=== PATIENT | male | born 1985 | race Caucasian/White ===

== ENCOUNTER 2018-11-17 09:39 | Emergency (ER) | payer MEDICAID, OTHER ==
[~2018-11-17] VITALS: Ht 165.1 cm; Wt 70.0 kg
[2018-11-17 09:56] VITALS: Ht 165.1 cm; Wt 70.0 kg
[2018-11-17] MEDS ORDERED: LORAZEPAM 2 MG INJ IM ONE (10:00)
--- NOTE | 2018-11-17 11:13 | ERD ---
ER Documentation Chief Complaint Chief Complaint bib lapd and ra from liquor store, feels stressed out wants to hang himself HPI This is a 33-year-old man with a history of schizophrenia recently noncompliant with his medications brought in by EMS and [employer] officers for agitation and bizarre behavior while at a grocery store. Patient stated he wanted to kill himself and wanted to hang himself today and states 2 days ago he was co ntemplating jumping off of a bridge to end his life. Patient had no trauma, no recent fevers or chills, no complaints of headache or blurry vision. Patient was transported here by EMS crying and agitated ROS All systems reviewed and are negative except as per history of present illness. Allergies Allergies: Coded Allergies: No Known Allergy (Unverified , 11/17/18) PMhx/Soc History of Surgery: No Anesthesia Reaction: No Hx Neurological Disorder: No Hx Respiratory Disorders: No Hx Cardiac Disorders: No Hx Psychiatric Problems: Yes (SCHIZOPHRENIA ) Hx Miscellaneous Medical Probl: No Hx Alcohol Use: Yes Hx Substance Use: No Hx Tobacco Use: Yes Smoking Status: Current every day smoker FmHx Family History: No diabetes Physical Exam Vitals Vital Signs Date Temp Pulse Resp B/P (MAP) Pulse Ox O2 O2 Flow FiO2 Time Delivery Rate 11/17/18 98.2 82 18 148/102 100 09:56 (117) Physical Exam GENERAL: Well-developed, well-nourished, agitated combative HEENT: Moist mucous membranes, pink conjunctiva, no cervical spine tenderness or step-off deformities, no goiter, no jaundice or icterus, extraocular movements intact without pain. No submandibular induration, and no pharyngeal erythema NEURO: Alert and oriented 3, cranial nerves II through XII intact bilaterally, pupils equal round reactive to light, no focal deficits or facial asymmetry CARDIAC: Regular rate and rhythm, no murmurs rubs or gallops LUNGS: Clear bilaterally no wheezing crackles or stridor ABDOMEN: Soft nontender, no guarding, no rigidity, no rebound, no psoas sign no obturator sign. Normoactive bowel sounds SKIN: Warm and dry to touch, no abrasions, contusions, or hematomas, no lacerations, no ecchymosis, no target lesions, and without ulcers EXTREMITIES: No clubbing cyanosis or edema, calves are bilaterally symmetrical, no Homans sign, no popliteal cord sign. Distal pulses equal and bilateral PSYCH: Agitated, depressed affect Result Diagram: 11/17/18 1050 Results 24 hrs Laboratory Tests Test 11/17/18 10:40 11/17/18 10:50 Urine Color YELLOW Urine Clarity CLEAR Urine pH 7.0 Urine Specific Colona 1.013 Urine Ketones TRACE mg/dL Urine Nitrite NEGATIVE mg/dL Urine Bilirubin NEGATIVE mg/dL Urine Urobilinogen NEGATIVE mg/dL Urine Leukocyte Esterase NEGATIVE Miller/ul Urine Hemoglobin NEGATIVE mg/dL Urine Glucose NEGATIVE mg/dL Urine Total Protein NEGATIVE mg/dl Urine Opiates Screen Negative Urine Barbiturates Negative Urine Amphetamines Screen Pending Urine Benzodiazepines Screen Negative Urine Cocaine Screen Negative Urine Cannabinoids Positive White Blood Count 12.4 10^3/ul Red Blood Count 5.09 10^6/ul Hemoglobin 14.6 g/dl Hematocrit 44.4 % Mean Corpuscular Volume 87.2 fl Mean Corpuscular Hemoglobin 28.7 pg Mean Corpuscular Hemoglobin Concent 32.9 g/dl Red Cell Distribution Width 13.8 % Platelet Count 372 10^3/UL Mean Platelet Volume 10.4 fl Immature Granulocytes % 0.200 % Neutrophils % 80.6 % Lymphocytes % 11.4 % Monocytes % 7.0 % Eosinophils % 0.3 % Basophils % 0.5 % Nucleated Red Blood Cells % 0.0 /100WBC Immature Granulocytes # 0.030 10^3/ul Neutrophils # 10.0 10^3/ul Lymphocytes # 1.4 10^3/ul Monocytes # 0.9 10^3/ul Eosinophils # 0.0 10^3/ul Basophils # 0.1 10^3/ul Nucleated Red Blood Cells # 0.0 10^3/ul Current Medications Medications Dose Sig/Niru Start Time Status Last (Trade) Ordered Route PRN Stop Time Admin Dose Reason Admin Lorazepam 1 mg ONCE ONCE 11/17/18 DC 11/17/18 (Ativan) IM 10:00 11/17/18 10:02 10:01 Procedures/MDM Security one-to-one watch was established I administered lorazepam 1 mg IM x1. CBC and electrolytes were unremarkable, drug screen unremarkable, ethanol, Tylenol, aspirin levels negative. [employer] officers placed the patient on a 5150 psychiatric hold. Patient's behavioral symptoms have stabilized while in the department. Patient is medically cleared and appropriate for psychiatric evaluation and work up. No e/o neurologic, toxic, infectious, or metabolic cause. Arrangements for transfer to behavioral health facility have been made, patient pending transfer. Departure Diagnosis: Primary Impression: Suicidal ideation Additional Impression: Schizophrenia Schizophrenia type: unspecified Qualified Codes: F20.9 - Schizophrenia, unspecified Condition: BHUMI Bray MD Nov 17, 2018 11:13
[2018-11-17] MEDS ORDERED: ACETAMINOPHEN 325 MG TAB PO ONE (18:30)
[2018-11-18 06:17] VITALS: RESP 16
--- NOTE | 2018-11-18 07:34 | EN ---
Date/Time of Note Date/Time of Note DATE: 11/18/18 TIME: 07:33 ER Progress Note Psychiatric Observation Note: Indication: Suicidal ideation Duration: Go to than 20 hours Family history: As documented in original HPI The patient was observed with serial exams over the above timeframe. The patient continued to be well-appearing, and observation continued without complication. All other needs have been met during emergency department stay. Routine psychiatric medications ordered: None Hold status: Currently on 5150 hold placed by [employer] Placement status: The patient has been accepted to [facility]. He remained stable and is awaiting transportation around 9 AM this morning. WILLA RICHARD MD Nov 18, 2018 07:34
[2018-11-18] MEDS ORDERED: ACETAMINOPHEN 500 MG TAB PO STA (08:35)
[2018-11-18 09:36] VITALS: BP 125/83; PULSE 76
== END 2018-11-18 09:36 | disposition home or self-care (01) ==
LOC: EDBD 09:39 → E/R 09:39
DX: F20.9 Schizophrenia, unspecified (principal); F17.210 Nicotine dependence, cigarettes, uncomplicated
CPT/HCPCS: 80053; 80307; 81003; 85025; 96372; J2060; Z7502; Z7610